=== PATIENT | male | born 1960 ===

== ENCOUNTER 2023-07-08 13:54 | Inpatient (IN) | payer SELFPAY ==
[~2023-07-08] VITALS: Ht 190.5 cm; Wt 83.6 kg
[~2023-07-08 13:54] MED LIST: DIABETA 5MG5 MG/TAB PO; FLOMAX 0.40.4 MG/CAP PO; GLUCOPHAGE500 MG/TAB PO; NORCO 325 MG-51 TAB PO; PERCOCET 325 MG1 TA2 PO; PHENERGAN 25 TA25 MG PO; PYRIDIUM 100MG100 MG PO; QUESTRAN4 GM/9 GM PO
[2023-07-08 14:57] LABS: BASO % 0.8 % (0.0-2.0); EOS # 0.1 K/mm3 (0.0-0.7); EOS % 2.8 % (0.0-4.0); GRAN # 3.5 K/mm3 (1.4-6.5); GRAN % 71.8 % (42.2-75.2); HEMATOCRIT 49.1 % (42.0-52.0); HEMOGLOBIN 16.4 g/dl (13.5-18.0); LYMPH # 0.8 K/mm3 (1.2-3.4); LYMPH % 17.1 % (20.0-51.0); MEAN CELL VOLUME 85 fl (80.0-100.0); MEAN CORPUSCULAR HEMOGLOBIN 28 pg (27-31); MEAN CORPUSCULAR HGB CONC 33 g/dl (33.0-37.0); MEAN PLATELET VOLUME 10.8 fl (7.4-10.4); MONO # 0.3 K/mm3 (0.1-0.6); MONO % 6.5 % (1.7-9.3); PLATELET COUNT 292 K/mm3 (130-400); RED BLOOD COUNT 5.81 M/mm3 (4.20-5.60); REDCELL DISTRIBUTION WIDTH-CV 15.7 % (11.5-14.5)
[2023-07-08 15:08] LABS: ALBUMIN 3.7 gm/dL (3.4-4.8); BILIRUBIN,TOTAL 6.3 mg/dL (0.2-1.2); CALCIUM 10.1 mg/dL (8.4-10.2); CREATININE, serum 0.88 mg/dL (0.72-1.25); POTASSIUM 4.2 mmol/L (3.5-4.5); TOTAL PROTEIN 6.8 gm/dL (6.2-8.1)
[2023-07-08] MEDS ORDERED: JARDIANCE25 PO (16:18)
[2023-07-08] MEDS ORDERED: TOUJEO300 U/ML SQ (16:19)
[2023-07-08] MEDS ORDERED: INSULIN AS100 UNIT/3 SQ (16:19)
[2023-07-08 17:22] VITALS: BP 148/83; PULSE 75; TEMP 98
--- NOTE | 2023-07-08 18:54 | NUR ---
Pt. arrived to the floor via wheelchair. Pt. is A&OX3, assessment complete. INT to rt. wrist. Pt. reports pain to the abd. at a 5 on pain scale at time. Pt. denies further needs, call light within reach.
[2023-07-08 19:40] VITALS: BP 137/77; PULSE 77; TEMP 98.4
[2023-07-08 20:20] VITALS: BP_SYST 137
[2023-07-08] MEDS ORDERED: PRILOSEC 20MG20 MG PO (22:56)
[2023-07-09] VITALS (12 sets, daily range): BP systolic 129–142; BP diastolic 68–80; PULSE 71–88; TEMP 97.1–98.7
[2023-07-09 06:38] LABS: BASO % 0.9 % (0.0-2.0); EOS # 0.3 K/mm3 (0.0-0.7); EOS % 5.7 % (0.0-4.0); GRAN # 2.7 K/mm3 (1.4-6.5); GRAN % 61.8 % (42.2-75.2); HEMATOCRIT 43.3 % (42.0-52.0); LYMPH % 23.4 % (20.0-51.0); MEAN CELL VOLUME 84 fl (80.0-100.0); MEAN CORPUSCULAR HEMOGLOBIN 28 pg (27-31); MEAN CORPUSCULAR HGB CONC 33 g/dl (33.0-37.0); MEAN PLATELET VOLUME 10.5 fl (7.4-10.4); MONO # 0.3 K/mm3 (0.1-0.6); MONO % 7.1 % (1.7-9.3); PLATELET COUNT 245 K/mm3 (130-400); RED BLOOD COUNT 5.18 M/mm3 (4.20-5.60); REDCELL DISTRIBUTION WIDTH-CV 15.5 % (11.5-14.5)
[2023-07-09 06:39] LABS: HEMOGLOBIN 14.4 g/dl (13.5-18.0)
[2023-07-09 06:51] LABS: CALCIUM 8.9 mg/dL (8.4-10.2); CREATININE, serum 0.74 mg/dL (0.72-1.25); POTASSIUM 4.1 mmol/L (3.5-4.5)
[2023-07-09 07:08] LABS: MAGNESIUM 1.8 mg/dL (1.6-2.6); PHOSPHOROUS 3.6 mg/dL (2.3-4.7)
--- NOTE | 2023-07-09 07:40 | NUR ---
AT MIDNIGHT THE PTS BLOOD GLUCOSE WAS 75 SO THE PATIENT WAS GIVEN 2 OF THE APPLE JUICE CONTAINERS EACH 118 ML. THE PATIENT ONLY DRANK HALF OF THE APPLE JUICE PROVIDED AND AT THE 6 AM CHECK THE PATIENTS BLOOD GLUCOSE WAS 73. SINCE THE PTS ERCP WAS NOT UNTIL 1PM THE PATIENT WAS ENCOURAGED TO FINISH OFF THE APPLE JUICE STILL IN THE CUP WHICH WAS ABOUT 118 ML. THE PATIENT FINISHED OFF THE APPLE JUICE. BLOOD GLUCOSE MONITORING EVERY 6 HOURS ORDERED. THIS INFORMATION WAS PASSED ON TO THE DAY SHIFT NURSE TITO GRAVES.
--- NOTE | 2023-07-09 07:50 | NUR ---
CONSENT SIGNED ON CHART.
--- NOTE | 2023-07-09 07:51 | NUR ---
NURSING SHIFT ASSESSMENT COMPLETED. THE PATIENT WAS ALERT AND ORIENTED. THE PATIENT DENIED PAIN OR DISCOMFORT. THE PLAN OF CARE AND EVENING MEDICATIONS REVIEWED. QUESTIONS AND CONCERNS REGARDING THE ERCP PROCEDURE DISCUSSED. PATIENT UNDERSTANDS HE WILL BE NPO AT MIDNIGHT. THE PATIENT IS UP INDEPENDENTLY IN THE ROOM WITH A STEADY GAIT.
--- NOTE | 2023-07-09 08:10 | NUR ---
PT RESTING IN BED, IV TO RFA, CONSENT SIGNED ON CHART. PT TO GO TO ERCP AROUND 1300 PER REPORT. PT RATING PAIN @2/10. PT REMAINS NPO AT THIS TIME.
--- NOTE | 2023-07-09 09:26 | NUR ---
Initial visit; Patient thanked [employer] Curator for stopping though declines Spiritual Care. Patient appeared to want to not be bothered and he is [employer] so possibly wants to wait for someone of his Sally to contact when he learns the results of his tests.
--- NOTE | 2023-07-09 11:07 | NUR ---
PT TO MRI AT THIS TIME.
--- NOTE | 2023-07-09 16:33 | NUR ---
gro[facility] worker met with patient to discuss discharge planning. Patient confirmed he lives in [place]. Best points of contact is [facility], P# [phone], [facility] P# [phone]. PCP is Dr. Howard, Pharmacy is [facility]. No issues affording medications. Patient reports he is trying to get Medicaid. SW notified financial counselors and they will visit with the patient. No DPOA-HC, RENATE gave blank form. Patient has diabetic supplies and blood pressure cuff. Reports independent with ADLS and no issues with transporting to [facility]. Patient would like to return home at discharge. Discharge plan: Home
--- NOTE | 2023-07-09 21:36 | NUR ---
UPON SHIFT ASSESMENT, RIVERA WAS UP IN BED AXO AND PLEASANT. CURRENTLY HE C/O OF 06/16 RT FLANK AND PECTORAL PAIN. PATIENT DENIES RADIATING CHEST PAIN OR SOA. PATIENT STATES NO DIFFICULTY SWALLOWING OR NAUSEA. VS WNL AND TELE IS MS. CALL LIGHT WITHIN REACH.
[2023-07-10 01:00] VITALS: BP_SYST 133
[2023-07-10 05:00] VITALS: BP_SYST 119
[2023-07-10 05:09] VITALS: BP 119/69; PULSE 77; TEMP 97.7
[2023-07-10 06:25] LABS: HEMATOCRIT 45.1 % (42.0-52.0); HEMOGLOBIN 14.8 g/dl (13.5-18.0); MEAN CELL VOLUME 86 fl (80.0-100.0); MEAN CORPUSCULAR HEMOGLOBIN 28 pg (27-31); MEAN CORPUSCULAR HGB CONC 33 g/dl (33.0-37.0); MEAN PLATELET VOLUME 10.5 fl (7.4-10.4); PLATELET COUNT 247 K/mm3 (130-400); RED BLOOD COUNT 5.27 M/mm3 (4.20-5.60); REDCELL DISTRIBUTION WIDTH-CV 15.8 % (11.5-14.5)
[2023-07-10 06:48] LABS: CALCIUM 9.2 mg/dL (8.4-10.2); CREATININE, serum 0.9 mg/dL (0.72-1.25); MAGNESIUM 1.7 mg/dL (1.6-2.6); PHOSPHOROUS 3.7 mg/dL (2.3-4.7); POTASSIUM 4.2 mmol/L (3.5-4.5)
[2023-07-10 07:34] LABS: BAND 1 % (0-10); EOSINOPHIL 4 % (0-4); LYMPHOCYTE 20 % (20.0-51.0); NEUTROPHILS 66 % (42.0-75.2); PLATELET ESTIMATE NORMAL (NORMAL)
--- NOTE | 2023-07-10 07:39 | NUR ---
called critical C02 of [address] bourgeois[address] no new orders.
[2023-07-10 07:45] VITALS: BP 124/67; PULSE 74; TEMP 98.1
--- NOTE | 2023-07-10 07:50 | NUR ---
pt a&ox3 resting in bed. pt denies pain and NV this morning. vss and tele in place. BGL 139 this morning, no insulin required per ss. pt denies chest pain. scds to ble. fluids infusing into right forearm IV at 50ml/hr. pt denies needs at this time. call light in reach.
[2023-07-10 09:04] VITALS: BP_SYST 124
--- NOTE | 2023-07-10 10:00 | NUR ---
INT discontinued. discharge instructions given to pt and sister, all questions answered.
--- NOTE | 2023-07-10 10:20 | NUR ---
pt escorted to personal vehicle by wheelchair.
== END 2023-07-10 10:20 | disposition home or self-care (01) | DRG 435 ==
LOC: COL.ER 13:54 → SURG 15:53
PROVIDERS: Internal Medicine Gastroenterology; Personal Emergency Response Attendant; ADMIT Internal Medicine
PROC: 0FD98ZX Extraction of Common Bile Duct, Via Natural or Artificial Opening Endoscopic, Diagnostic (ICD-10-PCS; 2023-07-09)
PROC: 0F798DZ Dilation of Common Bile Duct with Intraluminal Device, Via Natural or Artificial Opening Endoscopic (ICD-10-PCS; principal; 2023-07-09 13:15)
DX: C25.9 Malignant neoplasm of pancreas, unspecified (principal); K83.1 Obstruction of bile duct; C24.0 Malignant neoplasm of extrahepatic bile duct; E11.9 Type 2 diabetes mellitus without complications; I10 Essential (primary) hypertension; K31.9 Disease of stomach and duodenum, unspecified; N40.0 Benign prostatic hyperplasia without lower urinary tract symptoms; K83.8 Other specified diseases of biliary tract; Z87.442 Personal history of urinary calculi; Z79.899 Other long term (current) drug therapy; Z79.84 Long term (current) use of oral hypoglycemic drugs
CPT/HCPCS: C1769; C2625; J2405; J2704; J3010; J7030; Q9967